=== PATIENT | female | born 1975 | race Caucasian/White ===

== ENCOUNTER 2020-02-21 17:05 | Emergency (ER) | payer BC, OTHER ==
[2020-02-21 18:01] LABS: #Eosinphils 0.1 thou/uL (0.0-0.7); #Monocytes 0.7 thou/uL (0.11-0.59); %Basophils 0.4 % (0.0-1.0); %Eosinophils 0.9 % (0.0-10.0); %Lymphocytes 18.2 % (21.0-51.0); %Monocytes 6.4 % (0.0-10.0); %Neutrophils 74.1 % (42.0-75.0); Hemoglobin 12.4 g/dL (12.0-16.0); Mean Corpuscular HGB CONC 32.8 g/dL (32.0-36.0); Mean Corpuscular Hemoglobin 26.8 pg (27.0-31.0); Mean Corpuscular Volume 81.9 fL (78.0-98.0); Mean Platelet Volume 9.3 fL (7.4-10.4); Platelet Count 293 thou/uL (130-400); RBC Distribution Width 13.5 % (11.5-14.5); Red Blood Cell (RBC) Count 4.61 mill/uL (4.20-5.40); White Blood Cell (WBC) Count 10.8 thou/uL (4.8-10.8)
[2020-02-21 18:11] LABS: ALT (SGPT) 13 U/L (8-55); AST (SGOT) 14 U/L (5-34); Alkaline Phosphatase 77 U/L (40-110); Anion Gap 12 mmol/L (10-20); BUN (Urea Nitrogen) 14 mg/dL (7.0-18.7); Bilirubin, Total 0.4 mg/dL (0.2-1.2); Calc. Creatinine Clearance 0 mL/min (70-130); Calcium 9.7 mg/dL (7.8-10.44); Carbon Dioxide 30 mmol/L (22-29); Chloride 96 mmol/L (98-107); Estimated GFR-MDRD 74; Globulin 3.1 g/dL (2.4-3.5); Glucose 109 mg/dL (70-105); Lipase 22 U/L (8-78); Potassium 3.9 mmol/L (3.5-5.1); Protein, Total 7.1 g/dL (6.0-8.3); Sodium 134 mmol/L (136-145)
[2020-02-21] MEDS ORDERED: Mag-Al 1200 mg/1200 mg/30 ML UDCUP ONE (18:56)
[2020-02-21] MEDS ORDERED: Lidocaine Viscous Sol 2% 15 ml UD Cup ONE (18:56)
[2020-02-21] MEDS ORDERED: Ondansetron PF 4 MG/2 ML Vial ONE (18:56)
[2020-02-21 19:33] LABS: Bacteria/HPF None Seen HPF (None Seen); Bilirubin Negative (Negative); Blood, Urine Trace (Negative); Clarity Extra Turbid (Clear); Glucose, Urine (Dipstick) Normal (Negative); Ketone, Urine Negative (Negative); Leukocyte Negative Leu/uL (Negative); Nitrite Negative (Negative); Protein, Urine (Dipstick) 10 mg/dL (Neg-Trace); RBC/HPF 0-3 HPF (0-3); Specific Gravity, Urine 1.019 (1.002-1.036); Urobilinogen Normal mg/dL (Less than 2); WBC/HPF None Seen HPF (0-3)
[2020-02-21 19:38] LABS: Pregnancy Test - Urine (BHCG) Negative (Negative); Pregu Control Background? CLEAR/WHITE (CLR/WHITE); Pregu Control Bar Appear? YES (CONTROL BAR); Specific Gravity 1.019 (1.002-1.036)
--- NOTE | 2020-02-21 20:20 | ULT ---
GALLBLADDER ULTRASOUND: 02/21/20 HISTORY: Right upper quadrant pain. Real time imaging of the right upper quadrant shows echogenic foci with shadowing within the gallblad edward compatible with small stones. There is also some sludge. No gallbladder wall thickening but the t echnologist does describe a positive ultrasound Tucker's sign. The common bile duct is normal in kishor iber at 4 mm. Liver is of diffuse increased echogenicity. Right kidney is normal in size and not obstructed. Pancreas is obscured. IMPRESSION: 1. Multiple cholelithiasis with a normal caliber common duct and positive ultrasound Tucker's si gn. 2. Fatty change to the liver. POS: OFF
== END 2020-02-21 20:50 | disposition home or self-care (01) ==
LOC: ERS 17:05
DX: K80.20 Calculus of gallbladder without cholecystitis without obstruction (principal); I10 Essential (primary) hypertension; Z87.891 Personal history of nicotine dependence; Z79.899 Other long term (current) drug therapy
CPT/HCPCS: 36415; 76705; 80053; 81003; 81015; 81025; 83690; 84484; 85025; 93005; 96361; 96374; J2405

== ENCOUNTER 2021-03-15 22:02 | Emergency (ER) | payer OTHER ==
[~2021-03-15 22:02] MED LIST: Iopamidol-370 76% 500 ML 1 ML ONE
[2021-03-15 23:19] LABS: Hemoglobin 12.8 g/dL (12.0-16.0); Mean Corpuscular HGB CONC 31.4 g/dL (32.0-36.0); Mean Corpuscular Volume 82.8 fL (78.0-98.0); Mean Platelet Volume 9.2 fL (7.4-10.4); Platelet Count 287 thou/uL (130-400); RBC Distribution Width 12.9 % (11.5-14.5); Red Blood Cell (RBC) Count 4.93 mill/uL (4.20-5.40); White Blood Cell (WBC) Count 6.6 thou/uL (4.8-10.8)
[2021-03-15 23:23] LABS: ALT (SGPT) 25 U/L (8-55); AST (SGOT) 28 U/L (5-34); Alkaline Phosphatase 78 U/L (40-110); Anion Gap 16 mmol/L (10-20); BUN (Urea Nitrogen) 7 mg/dL (7.0-18.7); Bilirubin, Total 0.5 mg/dL (0.2-1.2); Calc. Creatinine Clearance 0 mL/min (70-130); Calcium 9.7 mg/dL (7.8-10.44); Carbon Dioxide 27 mmol/L (22-29); Chloride 99 mmol/L (98-107); Globulin 3.2 g/dL (2.4-3.5); Glucose 95 mg/dL (70-105); Potassium 3.7 mmol/L (3.5-5.1); Protein, Total 7.2 g/dL (6.0-8.3); Sodium 138 mmol/L (136-145)
[2021-03-15 23:41] LABS: Band 8 % (5-11); Eosinophils 1 % (0-10); Lymphocytes 26 % (21-51); MDiff Complete? YES; Monocytes 9 % (0-10); Neutrophil 54 % (42-75); Reactive Lymphocytes 2 % (0-10)
[2021-03-15] MEDS ORDERED: Benzonatate 100 MG CAP ONE (23:48)
[2021-03-15] MEDS ORDERED: Acetaminophen/Codeine 30-300mg Tablet ONE (23:57)
== END 2021-03-16 01:20 | disposition home or self-care (01) ==
LOC: ERS 22:02
DX: U07.1 COVID-19 (principal); J12.82 Pneumonia due to coronavirus disease 2019; I10 Essential (primary) hypertension; F17.210 Nicotine dependence, cigarettes, uncomplicated; Z79.899 Other long term (current) drug therapy
CPT/HCPCS: 36415; 71045; 71275; 80053; 83880; 85025; 93005; Q9967

== ENCOUNTER 2021-03-18 12:23 | Emergency (ER) | payer OTHER | END 2021-03-18 12:58 | disposition home or self-care (01) | LOC: ERS 12:23 | DX: U07.1 COVID-19 (principal); I26.99 Other pulmonary embolism without acute cor pulmonale; I10 Essential (primary) hypertension; F17.210 Nicotine dependence, cigarettes, uncomplicated | CPT/HCPCS: 99283 ==

== ENCOUNTER 2022-02-19 20:05 | Observation (INO) | payer OTHER ==
[2022-02-19] MEDS ORDERED: Ondansetron PF 4 MG/2 ML Vial ONE (21:33)
[2022-02-19] MEDS ORDERED: Ketorolac Tromethamine 30 MG/ML VIAL ONE (21:33)
[2022-02-19] MEDS ORDERED: Lidocaine 2% PF 5 ML VIAL ONE (21:33)
[2022-02-19] MEDS ORDERED: Mag-Al 1200 mg/1200 mg/30 ML UDCUP ONE (21:33)
[2022-02-19] MEDS ORDERED: Lidocaine Viscous Sol 2% 15 ml UD Cup ONE (21:34)
[2022-02-19 22:03] LABS: #Eosinphils 0.1 thou/uL (0.0-0.7); #Lymphocytes 1.8 thou/uL (1.20-3.40); #Monocytes 0.9 thou/uL (0.11-0.59); %Basophils 0.3 % (0.0-1.0); %Eosinophils 1.1 % (0.0-10.0); %Lymphocytes 16.3 % (21.0-51.0); %Monocytes 8.4 % (0.0-10.0); %Neutrophils 73.8 % (42.0-75.0); Hemoglobin 14.2 g/dL (12.0-16.0); Mean Corpuscular HGB CONC 32.4 g/dL (32.0-36.0); Mean Corpuscular Hemoglobin 27.5 pg (27.0-31.0); Mean Corpuscular Volume 84.8 fL (78.0-98.0); Mean Platelet Volume 9.1 fL (7.4-10.4); Platelet Count 247 thou/uL (130-400); RBC Distribution Width 13.6 % (11.5-14.5); Red Blood Cell (RBC) Count 5.16 mill/uL (4.20-5.40); White Blood Cell (WBC) Count 10.8 thou/uL (4.8-10.8)
[2022-02-19 22:12] LABS: BHCG - Serum Negative (NEGATIVE); Pregs Control Background? CLEAR/WHITE (CLR/WHITE); Pregs Control Bar Appear? YES (CONTROL BAR)
[2022-02-19 22:24] LABS: ALT (SGPT) 17 U/L (8-55); AST (SGOT) 16 U/L (5-34); Albumin 4.2 g/dL (3.5-5.0); Alkaline Phosphatase 71 U/L (40-110); Anion Gap 14 mmol/L (10-20); BUN (Urea Nitrogen) 15 mg/dL (7.0-18.7); Bilirubin, Total 0.5 mg/dL (0.2-1.2); Calc. Creatinine Clearance 0 mL/min (70-130); Calcium 9.7 mg/dL (7.8-10.44); Carbon Dioxide 29 mmol/L (22-29); Chloride 95 mmol/L (98-107); Estimated GFR 91; Globulin 3.1 g/dL (2.4-3.5); Glucose 99 mg/dL (70-105); Lipase 27 U/L (8-78); Potassium 3.5 mmol/L (3.5-5.1); Protein, Total 7.3 g/dL (6.0-8.3); Sodium 134 mmol/L (136-145)
[2022-02-19 22:33] LABS: Bilirubin Negative (Negative); Blood, Urine Negative (Negative); Clarity Turbid (Clear); Glucose, Urine (Dipstick) Normal (Negative); Ketone, Urine Negative (Negative); Leukocyte Negative Leu/uL (Negative); Nitrite Negative (Negative); Protein, Urine (Dipstick) Negative (Neg-Trace); Specific Gravity, Urine 1.016 (1.002-1.036); pH, Urine 7.5 (5.0-9.0)
[2022-02-20] MEDS ORDERED: Piperacillin/Tazobactam 3.375 GM VIAL ONE ×2 (00:17→10:12)
[2022-02-20] MEDS ORDERED: Morphine 4 MG/ML VIAL ONE (00:41)
[2022-02-20] MEDS ORDERED: Morphine 4 MG/ML VIAL SLOW IVP PRN (01:40)
[2022-02-20] MEDS ORDERED: Ondansetron ODT 4 MG TAB SL PRN (01:45)
[2022-02-20] MEDS ORDERED: Ondansetron PF 4 MG/2 ML Vial IVP PRN (01:45)
[2022-02-20 01:51] LABS: SARS-CoV-2 NAA Rapid Test Not Detected (NotDetected)
[2022-02-20 01:53] VITALS: BMI 33.0
[2022-02-20] MEDS: Sodium Chloride 0.9% 1,000 ML IV SCH ×2 (02:14→11:36)
[2022-02-20] MEDS ORDERED: Piperacillin/Tazobactam 3.375 GM in Sodium Chloride 0.9% 100 ML IVPB SCH ×2 (04:00→06:00)
[2022-02-20] MEDS ORDERED: HYDROmorphone 0.5 MG/0.5 ML SYRINGE ONE (09:42)
[2022-02-20] MEDS ORDERED: fentaNYL Citrate/PF 100 MCG/2 ML SYRINGE ONE (09:42)
[2022-02-20] MEDS ORDERED: Midazolam HCl 2 mg/2 ml Vial ONE (09:42)
[2022-02-20] MEDS ORDERED: Bupivacaine/Epinephrine 0.25% 30 ML VIAL ONE (09:45)
[2022-02-20] MEDS ORDERED: SUGAMMADEX SODIUM 200 MG/2 ML VIAL ONE (09:50)
[2022-02-20] MEDS ORDERED: Phenylephrine 10 MG/ML VIAL ONE (09:57)
[2022-02-20] MEDS ORDERED: Lidocaine 1% MPF 2 ML VIAL ONE (09:57)
[2022-02-20] MEDS ORDERED: Ondansetron PF 4 MG/2 ML Vial ONE (09:57)
[2022-02-20] MEDS ORDERED: PROPOFOL 200 MG/20 ML VIAL ONE (09:57)
[2022-02-20] MEDS ORDERED: Dexamethasone 20 MG/5 ML VIAL ONE (09:57)
[2022-02-20] MEDS ORDERED: Rocuronium Bromide 10 MG/ML (10ML VIAL) ONE (09:57)
[2022-02-20] MEDS ORDERED: Ondansetron HCl/PF 4 MG/2 ML Vial IVP PRN (10:26)
[2022-02-20] MEDS ORDERED: Promethazine HCl 25 MG/ML VIAL IVPB PRN (10:26)
[2022-02-20] MEDS ORDERED: Promethazine HCl 25 MG/ML VIAL IM PRN (10:26)
[2022-02-20] MEDS ORDERED: HYDROcodone/Acetaminophen 7.5/325 mg Tablet PO PRN (10:40)
[2022-02-20] MEDS ORDERED: Fentanyl 100 MCG/2 ML VIAL ONE (11:02)
[2022-02-20 11:36] VITALS: TEMP 98.1
[2022-02-20 17:12] VITALS: BP 116/76
[2022-02-20] MEDS ORDERED: Lisinopril/Hydrochlorothiazide 20/25 mg Tablet PO SCH (21:00)
== END 2022-02-20 17:10 | disposition home or self-care (01) ==
LOC: ERS 20:05 → SURG B 02-20 00:43
PROVIDERS: ADMIT Surgery; ATTEND Surgery
PROC: 0FT44ZZ Resection of Gallbladder, Percutaneous Endoscopic Approach (ICD-10-PCS; principal; 2022-02-20)
DX: K81.2 Acute cholecystitis with chronic cholecystitis (principal); I10 Essential (primary) hypertension; Z79.899 Other long term (current) drug therapy; Z20.822 Contact with and (suspected) exposure to COVID-19
CPT/HCPCS: 36415; 76705; 80053; 81003; 83690; 84703; 85025; 87086; 88304; 93005; 96365; 96375; 96376; C1713; G0378; J1100; J1170; J1885; J2001; J2250; J2270; J2370; J2405; J2543; J2704; J3010; J3490; J7050; U0002

== ENCOUNTER 2023-04-30 09:00 | Emergency (ER) | payer OTHER, SELFPAY ==
[2023-04-30 09:53] LABS: SARS-CoV-2 NAA Rapid Test Not Detected (NotDetected)
== END 2023-04-30 10:10 | disposition home or self-care (01) ==
LOC: ERS 09:00
DX: J06.9 Acute upper respiratory infection, unspecified (principal); I10 Essential (primary) hypertension; F17.210 Nicotine dependence, cigarettes, uncomplicated; Z79.899 Other long term (current) drug therapy; Z20.822 Contact with and (suspected) exposure to COVID-19
CPT/HCPCS: 71046

== ENCOUNTER 2024-04-22 18:39 | Observation (INO) | payer OTHER, SELFPAY ==
[~2024-04-22 18:39] MED LIST changes: -Iopamidol-370 76% 500 ML 1 ML ONE; +Iopamidol-370 76% 500 ML MDV (1 ML CHARGE) ONE
[2024-04-22] MEDS ORDERED: Piperacillin/Tazobactam 4.5 GM VIAL ONE (19:14)
[2024-04-22] MEDS ORDERED: Sodium Chloride 0.9% 100 ML ONE (19:14)
[2024-04-22] MEDS ORDERED: Ondansetron PF 4 MG/2 ML Vial ONE (19:14)
[2024-04-22] MEDS ORDERED: HYDROmorphone 0.5 MG/0.5 ML SYRINGE ONE (19:15)
[2024-04-22 19:23] LABS: #Basophils 0.04 10x3/uL (0.0-0.2); %Basophils 0.3 % (0.0-1.0); %Eosinophils 0.5 % (0.0-10.0); %Lymphocytes 15.6 % (21.0-51.0); %Monocytes 4.4 % (0.0-10.0); %Neutrophils 78.9 % (42.0-75.0); Hematocrit 48.4 % (36.0-47.0); Hemoglobin 15.7 g/dL (12.0-16.0); Mean Corpuscular HGB CONC 32.4 g/dL (32.0-36.0); Mean Corpuscular Hemoglobin 26.2 pg (27.0-31.0); Mean Corpuscular Volume 80.7 fL (78.0-98.0); Mean Platelet Volume 11.6 fL (7.4-10.4); Platelet Count 307 10x3/uL (130-400); RBC Distribution Width 14.3 % (11.5-14.5)
[2024-04-22 19:40] LABS: ALT (SGPT) 39 U/L (8-55); AST (SGOT) 30 U/L (5-34); Albumin 4.3 g/dL (3.5-5.0); Alkaline Phosphatase 103 U/L (40-110); Anion Gap 20 mmol/L (10-20); BUN (Urea Nitrogen) 27 mg/dL (7.0-18.7); Bilirubin, Total 0.5 mg/dL (0.2-1.2); Calc. Creatinine Clearance 0 mL/min (70-130); Calcium 10.9 mg/dL (7.8-10.44); Carbon Dioxide 26 mmol/L (22-29); Chloride 99 mmol/L (98-107); Estimated GFR 75; Globulin 3.9 g/dL (2.4-3.5); Glucose 121 mg/dL (70-105); Protein, Total 8.2 g/dL (6.0-8.3); Sodium 141 mmol/L (136-145)
[2024-04-22 19:41] LABS: INR-International Normal Ratio 0.9
[2024-04-22 19:42] LABS: PTT 22.6 sec (22.9-36.1)
[2024-04-22] MEDS ORDERED: Sodium Chloride 0.9% 1,000 ML IV SCH (22:30)
[2024-04-22] MEDS ORDERED: Ondansetron PF 4 MG/2 ML Vial IVP PRN (23:28)
[2024-04-22] MEDS ORDERED: Acetaminophen 650 MG Suppository PR PRN (23:28)
[2024-04-22] MEDS ORDERED: Ondansetron ODT 4 MG TAB PO PRN (23:28)
[2024-04-23 00:15] VITALS: BMI 32.1
[2024-04-23] MEDS ORDERED: Nicotine 14 MG PATCH TD PRN (00:15)
[2024-04-23] MEDS: Acetaminophen 325 MG TAB PO SCH (00:24)
[2024-04-23 05:35] LABS: #Basophils Less than 0.03 10x3/uL (0.0-0.2); %Basophils 0.2 % (0.0-1.0); %Lymphocytes 22.7 % (21.0-51.0); %Monocytes 7.6 % (0.0-10.0); %Neutrophils 68.1 % (42.0-75.0); Hemoglobin 12.8 g/dL (12.0-16.0); Mean Corpuscular Hemoglobin 26.2 pg (27.0-31.0); Mean Corpuscular Volume 81.8 fL (78.0-98.0); Mean Platelet Volume 11.4 fL (7.4-10.4); Platelet Count 241 10x3/uL (130-400); RBC Distribution Width 14.5 % (11.5-14.5); Red Blood Cell (RBC) Count 4.89 mill/uL (4.20-5.40)
[2024-04-23 08:14] LABS: ALT (SGPT) 55 U/L (8-55); AST (SGOT) 50 U/L (5-34); Albumin 3.3 g/dL (3.5-5.0); Alkaline Phosphatase 89 U/L (40-110); Anion Gap 11 mmol/L (10-20); BUN (Urea Nitrogen) 20 mg/dL (7.0-18.7); Bilirubin, Total 0.7 mg/dL (0.2-1.2); Calc. Creatinine Clearance 113 mL/min (70-130); Calcium 8.7 mg/dL (7.8-10.44); Carbon Dioxide 27 mmol/L (22-29); Chloride 104 mmol/L (98-107); Estimated GFR 97; Globulin 2.7 g/dL (2.4-3.5); Glucose 95 mg/dL (70-105); Potassium 3.5 mmol/L (3.5-5.1); Sodium 138 mmol/L (136-145)
[2024-04-23] MEDS ORDERED: FLU (Fluarix Triv) TS24-25(6MOS UP)/PF 45 MCG/0.5 ML Syringe IM ONE (09:00)
[2024-04-23] MEDS: Enoxaparin 40 MG (0.4 mL) SYRINGE SC SCH (10:55)
[2024-04-23] MEDS: Famotidine/PF 20 mg/2ml Vial SLOW IVP SCH (10:55)
[2024-04-23] MEDS: Famotidine 20 MG TAB PO SCH (10:55)
[2024-04-23 12:11] VITALS: BP 121/75; TEMP 98.4
[2024-04-23] MEDS ORDERED: Hydrochlorothiazide 25 MG TAB PO SCH (21:00)
[2024-04-23] MEDS ORDERED: Lisinopril 20 MG TAB PO SCH (21:00)
== END 2024-04-23 14:49 | disposition home or self-care (01) ==
LOC: ERS 18:39 → T4-B 22:22
PROVIDERS: ADMIT Student in an Organized Health Care Education/Training Program; ATTEND Internal Medicine
DX: K56.51 Intestinal adhesions [bands], with partial obstruction (principal); I10 Essential (primary) hypertension; J18.9 Pneumonia, unspecified organism; K56.7 Ileus, unspecified; K43.9 Ventral hernia without obstruction or gangrene; F17.210 Nicotine dependence, cigarettes, uncomplicated; Z86.711 Personal history of pulmonary embolism; Z87.59 Personal history of other complications of pregnancy, childbirth and the puerperium; Z90.49 Acquired absence of other specified parts of digestive tract; Z98.51 Tubal ligation status; Z79.899 Other long term (current) drug therapy
CPT/HCPCS: 36415; 74177; 80053; 83605; 85025; 85610; 85730; 87040; 93005; 94760; 96361; 96365; 96375; G0378; J2405; J2543; Q9967